=== PATIENT | male | born 1985 | race Caucasian/White ===

== ENCOUNTER → 2016-06-05 | Outpatient (CLI) | payer OTHER ==
[~2016-06-05] MED LIST: CIPR-255 PO; DOCU-94 PO; ESCI1TAB10 PO; GABA-113 PO; METH-307 PO; MULT-506 PO; OXYBUTYNIN PO; OXYC-164 PO; PHEN-876 PO; SULF800T23 PO; VITACAP26 PO
== END | disposition home or self-care (01) ==
LOC: C.LABSPEC 17:42
PROVIDERS: ATTEND Nurse Practitioner Family
DX: Z00.00 Encounter for general adult medical examination without abnormal findings (principal); N20.0 Calculus of kidney

== ENCOUNTER 2016-06-24 11:39 | Day surgery (SDC) | payer OTHER ==
--- NOTE | 2016-06-10 09:44 | PAT Medication Instructions ---
Service Date Jun 10, 2016. Current Home Medication List Docusate Sodium (Colace), 1 CAP PO PRN Escitalopram Oxalate (Lexapro), 20 MG PO HS Gabapentin (Neurontin), 900 MG PO TID Methocarbamol (Robaxin), 750 MG PO TID PRN for RN Multivitamin (Multivitamin), 1 TAB PO QAM Oxycodone Hcl (Oxycodone Hcl), 1 TAB PO QID PRN for N Vitamins C & E (Vitamin C), 1 TAB PO QAM [Oxybutynin], 1 TAB PO PRN Medication Instructions For Your Scheduled Surgery - Hold the following medications the morning of surgery: [Oxybutynin], 1 TAB PO PRN Vitamins C (Vitamin C), 1 TAB PO QAM Multivitamin (Multivitamin), 1 TAB PO QAM Docusate Sodium (Colace), 1 CAP PO PRN Methocarbamol (Robaxin), 750 MG PO TID PRN for RN - Take the following medications the morning of surgery with a sip of water: Gabapentin (Neurontin), 900 MG PO TID Oxycodone Hcl (Oxycodone Hcl), 1 TAB PO QID PRN for N (okay to take up to 4 hours prior to surgery if needed) - Take the following medications as scheduled the night before surgery: [Oxybutynin], 1 TAB PO PRN Gabapentin (Neurontin), 900 MG PO TID Escitalopram Oxalate (Lexapro), 20 MG PO HS Oxycodone Hcl (Oxycodone Hcl), 1 TAB PO QID PRN for N Methocarbamol (Robaxin), 750 MG PO TID PRN for RN If you have any questions please call us at [phone] (Idalia Riley PA-C) or [phone] or [phone]
--- NOTE | 2016-06-10 10:17 | DIAGNOSTIC IMAGING REPORT ---
CHEST PREADMISSION(PA/LAT) CLINICAL HISTORY: Preoperative chest COMPARISON STUDY: No previous studies for comparison. FINDINGS: The cardiac and mediastinal contours are normal. There is no evidence of focal pulmonary consolidation. There is no evidence of failure. No pleural effusions are visualized.[ IMPRESSION: No active disease in the chest. Electronically signed by: Malachi Cyr M.D. 06/10/2016 10:16 AM Dictated Date/Time: 06/10/2016 10:16 AM
[2016-06-10 10:23] LABS: BASO % 0.4 %; BASO ABS # 0.03 K/uL (0-0.2); COMPLETE YES; EOS % 4.8 %; HEMATOCRIT 44.1 % (42-52); IG% 0.1 %; LYMPH % 18.1 %; LYMPH ABS # 1.47 K/uL (1.2-3.4); MEAN CELL VOLUME 89.3 fL (80-100); MEAN CORPUSCULAR HEMOGLOBIN 29.6 pg (25-34); MEAN CORPUSCULAR HGB CONC 33.1 g/dl (32-36); MEAN PLATELET VOLUME 9.7 fL (7.4-10.4); MONO % 8.6 %; PLATELET COUNT 371 K/uL (130-400); RED BLOOD COUNT 4.94 M/uL (4.7-6.1); WHITE BLOOD COUNT 8.13 K/uL (4.8-10.8)
[2016-06-10 10:26] LABS: URINE APPEARANCE CLOUDY (CLEAR); URINE BILIRUBIN NEG (NEG); URINE COLOR YELLOW; URINE NITRITE NEG (NEG); URINE SPECIFIC GRAVITY 1.016 (1.000-1.030); UROBILINOGEN NEG (NEG)
[2016-06-10 10:27] LABS: BUN/CREATININE RATIO 13.5 (10-20); CALCIUM 9.3 mg/dl (8.5-10.1); CREATININE 0.77 mg/dl (0.60-1.40); POTASSIUM 4.3 mmol/L (3.5-5.1)
[2016-06-10 10:36] LABS: MANUAL MICROSCOPIC REQUIRED? NO; REVIEW REQ? YES
[2016-06-10 10:52] LABS: URINE EPITHELIAL CELL AUTO 0-5 /lpf (0-5)
[~2016-06-24] VITALS: Ht 185.4 cm; Wt 66.0 kg
[~2016-06-24 11:39] MED LIST changes: -CIPR-255 PO; +CIPROFLOXACIN / D5W 400 MG IV SCH; +LACTATED RINGER'S 1000ML 1,000 ML IV SCH; -PHEN-876 PO; -SULF800T23 PO
[2016-06-24 12:31] VITALS: BP 123/49; PULSE 64; TEMP 36.7; O2SAT 98; Ht 185.4 cm; Wt 66.0 kg
[2016-06-24] MEDS ORDERED: ONDANSETRON INJ 2 MG/ML 2 ML VIAL ONE (12:44)
[2016-06-24] MEDS ORDERED: FENTANYL CITRATE INJ 50 MCG/1 ML 2 ML VIAL ONE ×2 (12:44→13:36)
[2016-06-24] MEDS ORDERED: PROPOFOL IV EMULSION 10 MG/ML 20 ML VIAL IV ONE (12:44)
[2016-06-24] MEDS ORDERED: LIDOCAINE HCL 2% 2 ML VIAL (20MG/ML) ONE (12:44)
[2016-06-24] MEDS ORDERED: MIDAZOLAM HCL 1 MG/ML 2ML VIAL ONE (12:44)
--- NOTE | 2016-06-24 12:59 | History & Physical Bridge Note ---
H&P Re-Evaluation Bridge Note: I have examined the patient, reviewed the History & Physical and in the interval since the performance of the History & Physical I have noted the following changes of clinical significance: No changes noted
[2016-06-24] MEDS ORDERED: CONRAY 30% 150ML BOTTLE ONE (13:14)
[2016-06-24] MEDS ORDERED: PHEN-876 PO (13:31)
[2016-06-24] MEDS ORDERED: CIPR-255 PO (13:31)
[2016-06-24] MEDS ORDERED: SULF800T23 PO (13:47)
--- NOTE | 2016-06-24 13:48 | Discharge Instructions ---
Discharge Instructions Date of Service Jun 24, 2016. Admission Reason for Admission: Bladder Stone Discharge Discharge Diagnosis / Problem: Bladder stone Discharge Goals Goal(s): Decrease discomfort, Improve function, Increase independence, Improve disease control, Prevent Disease Progression Activity Recommendations Activity Limitations: resume your previous activity Lifting Limitations: none Exercise/Sports Limitations: none May Resume Sexual Activity: when tolerated Shower/Bathe: no limitations Driving or Machine Use: no limitations . Instructions / Follow-Up Instructions / Follow-Up Please keep your previously scheduled follow up with Dr. Landaverde Discharge Diet Recommended Diet: Regular Diet Procedures Procedures Performed: Cystolithopaxy, cystoscopy Pending Studies Studies pending at discharge: no Medical Emergencies . Who to Call and When: Medical Emergencies: If at any time you feel your situation is an emergency, please call 911 immediately. . Non-Emergent Contact Non-Emergency issues call your: Urologist Call Non-Emergent contact if: you have a fever, temperature is above 101.5, your pain is not controlled, your pain is worsening . . "Provider Documentation" section prepared by Clint Izaguirre. VTE Core Measure Inpt VTE Proph given/why not?: Treatment not indicated
[2016-06-24] MEDS ORDERED: PHENAZOPYRIDINE HCL 200 MG TAB PO STA (13:49)
[2016-06-24] MEDS ORDERED: SODIUM CHLORIDE 0.9% 1000ML 1,000 ML IV SCH (13:49)
--- NOTE | 2016-06-24 13:51 | [facility] Post Operative Brief Note ---
Immediate Operative Summary Operative Date Jun 24, 2016. Pre-Operative Diagnosis Bladder stone Post-Operative Diagnosis Same as preoperative diagnosis Procedure(s) Performed Cysto laser-lithopaxy, cystoscopy Surgeon Dr. Charlie Landaverde Supervisor [employer] Surgeon(s) None Estimated Blood Loss 0 mL Findings Bladder calculus (large). Soft, fragmented easily and was irrigated out of the bladder without difficulty. No evidence of urethral strictures. Specimens Permanent specimens A: Bladder stone for analysis Drains none Anesthesia Gen Complication(s) None Disposition Recovery Room / PACU (stable)
[2016-06-24] MEDS ORDERED: ACETAMINOPHEN 325 MG TAB PO PRN (14:00)
[2016-06-24] MEDS ORDERED: OXYCODONE/ACETAMINOPHEN 5-325 TAB PO PRN ×2 (14:00)
[2016-06-24] MEDS ORDERED: PHENAZOPYRIDINE HCL 200 MG TAB PO PRN (14:00)
[2016-06-24] MEDS ORDERED: LABETALOL HCL IV 5 MG/ML 20ML IV PRN (14:00)
[2016-06-24] MEDS ORDERED: KETOROLAC TROMETHAMINE 30 MG/ML VIAL IV. PRN (14:00)
[2016-06-24] MEDS ORDERED: ATROPINE SULFATE 0.1 MG/ML 5ML SYR IV PRN (14:00)
[2016-06-24] MEDS ORDERED: ONDANSETRON INJ 2 MG/ML 2 ML VIAL IV PRN (14:00)
[2016-06-24] MEDS ORDERED: KETOROLAC TROMETHAMINE 30 MG/ML VIAL ONE (14:13)
[2016-06-24] MEDS ORDERED: HYDROmorphone INJ 1 MG/ML SYR ONE ×2 (14:14→14:45)
[2016-06-24] MEDS: HYDROmorphone INJ 2 MG/ML SYR/VIAL IV PRN ×6 (14:16→14:45)
--- NOTE | 2016-06-24 14:21 | OPERATIVE REPORT ---
DATE OF OPERATION: 06/24/2016 PREOPERATIVE DIAGNOSIS: Bladder calculus. POSTOPERATIVE DIAGNOSIS: Bladder calculus. PROCEDURE PERFORMED: Cystoscopy, laser litholapaxy. SURGEON: Dr. Charlie Landaverde. ANESTHESIA: General. ESTIMATED BLOOD LOSS: 0. URINE OUTPUT: Not recorded. SPECIMENS: Stone for chemical analysis. DRAINS: There were no drains. COMPLICATIONS: There were no complications. DESCRIPTION OF THE PROCEDURE: Shantanu Lizama was identified in the preoperative holding area. Appropriate informed consents were reviewed and completed and the patient was transported to the operating suite. Upon arrival, he started to receive a dose of ciprofloxacin however started to have a local reaction with itching in his arm. We stopped this antibiotic and inserted Ancef in its place. Following induction of general anesthesia, he was placed in dorsolithotomy position where he was sterilely prepped and draped in standard fashion. We began the case by passing a 22-Guyanese cystoscope per urethra. Inspection revealed no evidence of stricture disease or other abnormalities. As I came to the prostatic urethra, I noted a large fragment of stone wedged in the prostatic urethra. This was yellow appearing and pale in color and I was able to free it from its site of impaction and push it retrograde into the bladder with the scope. Inspecting the inside of the bladder revealed a much larger calculus within the dependent portion of the bladder. I was able to pass a 1,000 micron laser fiber and fragment the shard of stone that had been wedged in the prostatic urethra without difficulty. I irrigated these pieces out of the bladder. I then used the same laser fiber to fragment the large bladder stone. After this was all fragmented into pieces small enough for passage through the scope I irrigated all the stone debris out of the bladder. Of note, this was quite a soft stone. It fragmented very easily. At the conclusion of the case, there was no stone debris visualized within the bladder and a very healthy system with no evidence of active bleeding or other problems. I emptied the bladder and withdrew the scope and concluded the case. The patient was subsequently extubated and taken to the PACU in stable condition. I attest to the content of the Intraoperative Record and any orders documented therein. Any exceptio ns are noted below.
[2016-06-24 15:15] VITALS: BP 123/46; PULSE 60; TEMP 36.6; O2SAT 97
[2016-06-24 15:45] VITALS: BP 113/47; PULSE 64; O2SAT 100
[2016-06-24 16:20] VITALS: BP 120/62; PULSE 70; TEMP 36.7; O2SAT 97
--- NOTE | 2016-06-24 16:21 | Anesthesiology Progress Note ---
Anesthesia Post Op Note Date & Time Jun 24, 2016 at 16:20 Vital Signs Vital Signs Past 12 Hours Date Time Temp Pulse Resp B/P Pulse Ox O2 Delivery O2 Flow Rate FiO2 06/24/16 15:07 59 16 97 06/24/16 15:07 59 16 06/24/16 15:05 115/57 06/24/16 15:02 59 16 06/24/16 15:02 59 16 99 06/24/16 15:00 117/59 06/24/16 14:57 59 16 06/24/16 14:57 58 16 98 06/24/16 14:55 111/57 06/24/16 14:52 56 16 98 06/24/16 14:52 56 16 06/24/16 14:51 59 16 06/24/16 14:51 60 16 100 06/24/16 14:50 120/60 06/24/16 14:46 63 13 98 06/24/16 14:46 64 13 06/24/16 14:45 117/58 06/24/16 14:42 60 16 06/24/16 14:42 57 16 99 06/24/16 14:40 115/49 06/24/16 14:37 57 16 06/24/16 14:37 57 16 99 06/24/16 14:35 118/59 06/24/16 14:32 60 16 100 06/24/16 14:32 60 16 06/24/16 14:31 55 16 06/24/16 14:31 56 16 100 06/24/16 14:30 115/63 06/24/16 14:26 60 16 06/24/16 14:26 61 16 100 06/24/16 14:25 117/64 06/24/16 14:23 55 16 06/24/16 14:23 55 16 100 06/24/16 14:20 118/66 06/24/16 14:18 54 16 100 06/24/16 14:18 55 16 06/24/16 14:15 124/54 06/24/16 14:13 56 16 100 06/24/16 14:13 56 16 06/24/16 14:10 102/45 06/24/16 14:08 59 06/24/16 14:08 59 100 06/24/16 14:05 109/70 06/24/16 14:03 36.5 69 20 114/51 100 Mask 10 06/24/16 14:03 70 20 114/51 100 06/24/16 14:03 69 20 06/24/16 12:31 36.7 64 16 123/49 98 Room Air Notes Mental Status: alert / awake / arousable, participated in evaluation Pt Amnestic to Procedure: Yes Nausea / Vomiting: adequately controlled Pain: adequately controlled Airway Patency, RR, SpO2: stable & adequate BP & HR: stable & adequate Hydration State: stable & adequate Anesthetic Complications: no major complications apparent
[2016-06-24 17:20] VITALS: BP 125/62; PULSE 61; TEMP 36.5; O2SAT 97
== END 2016-06-24 17:30 | disposition home or self-care (01) ==
LOC: C.ACU 11:39
PROVIDERS: ATTEND Urology
DX: N21.0 Calculus in bladder (principal); N20.0 Calculus of kidney; F17.210 Nicotine dependence, cigarettes, uncomplicated; Z82.49 Family history of ischemic heart disease and other diseases of the circulatory system; Z83.3 Family history of diabetes mellitus